=== PATIENT | male | born 1945 | race African-American/Black ===

== ENCOUNTER 2018-09-14 11:04 | Inpatient (IN) | payer MEDICARE, MEDICAID ==
[~2018-09-14] VITALS: Ht 185.4 cm; Wt 98.9 kg
[2018-09-14] MEDS ORDERED: ALBUTEROL (0.083%) 2.5MG/3ML NEB HHN STA (12:16)
[2018-09-14] MEDS ORDERED: IPRATROPIUM BROMIDE (0.02%) 0.5MG/2.5ML NEB HHN STA (12:16)
[2018-09-14 12:26] LABS: HEMATOCRIT. 36.5 % (42.0-52.0); HEMOGLOBIN. 11.7 g/dL (14.0-18.0); MEAN CORPUSCULAR HEMOGLOBIN 29.1 pg (28.0-32.0); MEAN CORPUSCULAR VOLUME 91.1 fL (80.0-94.0); MEAN PLATELET VOLUME 10.2 fl (7.4-10.4); PLATELET 214 x1000/uL (130-400); RED BLOOD CELL COUNT 4.01 mill/uL (4.7-6.1); RED CELL DISTRIBUTION WIDTH 14.3 % (11.6-14.6)
[2018-09-14] MEDS ORDERED: FUROSEMIDE 20MG/2ML VIAL IVP ONE (12:30)
[2018-09-14 12:32] LABS: CHLORIDE 103 mEq/L (98-107)
[2018-09-14 12:35] LABS: PARTIAL THROMBOPLASTIN TIME 26.1 sec (23.4-31.0); PROTHROMBIN TIME 10.1 sec (9.1-11.1)
[2018-09-14 13:04] LABS: PLATELET ESTIMATE NORMAL
[2018-09-14] MEDS ORDERED: IPRATROPIUM/ALBUTEROL 0.5-3(2.5)MG/3ML NEB INH PRN (13:15)
[2018-09-14] MEDS ORDERED: LEVOFLOXACIN 500MG PREMIX 100 ML IV ONE (13:15)
[2018-09-14] MEDS ORDERED: ACETAMINOPHEN 325MG TABLET PO PRN (13:15)
[2018-09-14] MEDS ORDERED: LORAZEPAM 2MG/ML CPJ IV PRN (13:15)
[2018-09-14] MEDS ORDERED: HYDROCODONE/ACETAMINOPHEN 5/325MG TABLET PO PRN (13:15)
[2018-09-14] MEDS ORDERED: NA PHOS,M-B/NA PHOS,DI-BA ENEMA 118ML PR PRN (13:15)
[2018-09-14] MEDS ORDERED: MORPHINE SULFATE 4 MG/ML CPJ (NOT FOR IM USE) IV PRN (13:15)
[2018-09-14] MEDS ORDERED: DOCUSATE SODIUM 100MG CAPSULE PO PRN (13:15)
[2018-09-14] MEDS ORDERED: DIPHENHYDRAMINE 50MG/ML VIAL IV PRN (13:15)
[2018-09-14] MEDS ORDERED: MAGNESIUM/ALUMINUM HYDROXIDE/SIMETHICONE 30ML UDC PO PRN (13:15)
[2018-09-14 15:04] LABS: CLARITY URINE CLEAR (CLEAR); COLOR URINE DARK YELLOW (YELLOW); KETONES URINE NEGATIVE (NEGATIVE); LEUKOCYTE ESTERASE URINE NEGATIVE (NEGATIVE); NITRITE URINE NEGATIVE (NEGATIVE); OCCULT BLOOD URINE NEGATIVE (NEGATIVE); PROTEIN URINE 3+ (NEGATIVE)
[2018-09-14 15:16] LABS: *AMPHETAMINES SCREEN URINE NEGATIVE (NEGATIVE); *BARBITURATES SCREEN URINE NEGATIVE (NEGATIVE); *BENZODIAZEPINES SCREEN URINE NEGATIVE (NEGATIVE); CANNABINOID URINE SCREEN PRESUMTIVE POSITIVE (NEGATIVE); PHENCYCLIDINE URINE SCREEN NEGATIVE (NEGATIVE)
[2018-09-14 15:17] LABS: *COCAINE SCREEN URINE NEGATIVE (NEGATIVE); METHADONE URINE SCREEN NEGATIVE (NEGATIVE); OPIATES URINE SCREEN NEGATIVE (NEGATIVE)
[2018-09-14] MEDS: CLONIDINE 0.1MG TABLET PO PRN (17:07)
[2018-09-14] MEDS ORDERED: AMLODIPINE 5MG TABLET PO NR (17:15)
[2018-09-14 18:22] VITALS: BP 186/82
[2018-09-14] MEDS ORDERED: GABA-290 PO (18:27)
[2018-09-14] MEDS ORDERED: INSU100I33 SQ ×2 (18:27)
[2018-09-14] MEDS ORDERED: LOSA100T14 PO (18:30)
[2018-09-14] MEDS ORDERED: FURO-151 PO (18:30)
[2018-09-14] MEDS ORDERED: HYDR-4001 PO (18:30)
[2018-09-14] MEDS ORDERED: HYDR100T26 PO (18:30)
[2018-09-14] MEDS ORDERED: DEXTROSE 50% WATER 50ML SYRINGE IV PRN (19:15)
[2018-09-14 20:00] VITALS: BP 148/73
[2018-09-14] MEDS: IPRATROPIUM/ALBUTEROL 0.5-3(2.5)MG/3ML NEB HHN SCH (20:44)
[2018-09-14] MEDS: ENOXAPARIN 40MG/0.4ML SYR SUBCUT SCH (20:53)
[2018-09-14] MEDS: INSULIN LISPRO 100 UNITS/ML SUBCUT SCH (20:53)
[2018-09-14] MEDS: GUAIFENESIN 600MG ER TABLET PO SCH (20:53)
[2018-09-14] MEDS: BLOOD SUGAR DIAGNOSTIC STRIP TEST SCH (20:54)
[2018-09-14] MEDS: METHYLPREDNISOLONE SOD SUCC 125 MG/2 ML VIAL IV SCH (20:54)
[2018-09-15] VITALS (8 sets, daily range): BP systolic 136–189; BP diastolic 61–94
[2018-09-15] MEDS: IPRATROPIUM/ALBUTEROL 0.5-3(2.5)MG/3ML NEB HHN SCH ×6 (00:52→21:14)
[2018-09-15] MEDS: METHYLPREDNISOLONE SOD SUCC 125 MG/2 ML VIAL IV SCH ×2 (05:59→14:45)
[2018-09-15] MEDS: BLOOD SUGAR DIAGNOSTIC STRIP TEST SCH ×4 (06:04→21:00)
[2018-09-15 08:02] LABS: BASOPHILS % 0.4 % (0.0-2.0); HEMATOCRIT. 33.8 % (42.0-52.0); HEMOGLOBIN. 10.8 g/dL (14.0-18.0); LYMPHOCYTES % 17.3 % (20.0-50.0); MEAN CORPUSCULAR VOLUME 90.8 fL (80.0-94.0); MEAN PLATELET VOLUME 10.7 fl (7.4-10.4); MONOCYTES % 7.2 % (2.0-8.0); NEUTROPHILS % 75.1 % (40.0-76.0); PLATELET 171 x1000/uL (130-400); RED BLOOD CELL COUNT 3.72 mill/uL (4.7-6.1); RED CELL DISTRIBUTION WIDTH 13.7 % (11.6-14.6)
[2018-09-15 08:14] LABS: CHLORIDE 102 mEq/L (98-107)
[2018-09-15 08:32] LABS: LDL CHOLESTEROL 86 mg/dL (5-100)
[2018-09-15 08:33] LABS: HDL CHOLESTEROL 63 mg/dL (40-59)
[2018-09-15 08:34] LABS: T4 FREE 1.62 ng/dL (0.76-1.46)
[2018-09-15] MEDS: INSULIN LISPRO 100 UNITS/ML SUBCUT SCH ×4 (08:50→21:00)
[2018-09-15] MEDS ORDERED: FUROSEMIDE 40MG/4ML VIAL IV SCH (09:00)
[2018-09-15] MEDS: ASPIRIN 81MG EC TABLET PO SCH (09:12)
[2018-09-15] MEDS: AMLODIPINE 5MG TABLET PO SCH ×2 (09:12→21:36)
[2018-09-15] MEDS: GUAIFENESIN 600MG ER TABLET PO SCH ×2 (09:19→21:41)
[2018-09-15] MEDS ORDERED: LOSARTAN POTASSIUM 50 MG TABLET PO SCH (10:30)
[2018-09-15] MEDS ORDERED: SODIUM POLYSTYRENE SULFONATE 15 G/60 ML BOT PO SCH (11:30)
[2018-09-15] MEDS ORDERED: LEVOFLOXACIN 250MG PREMIX 50 ML IV SCH (12:00)
[2018-09-15] MEDS: HYDRALAZINE HCL 50MG TABLET PO SCH ×2 (14:44→21:36)
[2018-09-15 18:50] LABS: CREATINE KINASE 270 IU/L (39-308)
[2018-09-15] MEDS: METHYLPREDNISOLONE SOD SUCC 40 MG/ML VIAL IV SCH ×2 (19:00→21:36)
[2018-09-15] MEDS: GUAIFENESIN 200MG/10ML SUGAR FREE UDC PO PRN (21:36)
[2018-09-15] MEDS: ENOXAPARIN 40MG/0.4ML SYR SUBCUT SCH (21:37)
[2018-09-16] VITALS: BP 147/71
[2018-09-16 04:00] VITALS: BP 155/79
[2018-09-16] MEDS: IPRATROPIUM/ALBUTEROL 0.5-3(2.5)MG/3ML NEB HHN SCH ×6 (04:00→20:45)
[2018-09-16] MEDS: METHYLPREDNISOLONE SOD SUCC 40 MG/ML VIAL IV SCH ×2 (06:02→18:29)
[2018-09-16] MEDS: HYDRALAZINE HCL 50MG TABLET PO SCH (06:03)
[2018-09-16 06:46] LABS: BASOPHILS % 0.3 % (0.0-2.0); HEMATOCRIT. 31.3 % (42.0-52.0); HEMOGLOBIN. 10.1 g/dL (14.0-18.0); LYMPHOCYTES % 11.8 % (20.0-50.0); MEAN CORPUSCULAR HEMOGLOBIN 28.9 pg (28.0-32.0); MEAN CORPUSCULAR VOLUME 89.8 fL (80.0-94.0); MEAN PLATELET VOLUME 10.4 fl (7.4-10.4); NEUTROPHILS % 81.9 % (40.0-76.0); PLATELET 182 x1000/uL (130-400); RED BLOOD CELL COUNT 3.48 mill/uL (4.7-6.1)
[2018-09-16] MEDS: BLOOD SUGAR DIAGNOSTIC STRIP TEST SCH ×4 (06:56→20:58)
[2018-09-16 08:00] VITALS: BP 172/68
[2018-09-16 08:28] LABS: PHOSPHORUS 4.6 mg/dL (2.5-4.9)
[2018-09-16 08:37] LABS: BG BASE EXCESS 3.3 mmol/L (-2.0-2.0); BG CARBOXYHEMOGLOBIN 0.7 % (0.5-1.5); BG DEOXYHEMOGLOBIN 11.2 % (0.0-5.0); BG HCO3 ACT 27.5 mmol/L (22.0-26.0); BG OXYGEN SATURATION 88.7 % (92.0-98.5); BG OXYHEMOGLOBIN 88.1 % (94.0-97.0); BG PCO2 40.6 mmHg (35.0-45.0); BG PH 7.449 (7.350-7.450); BG SAMPLE SITE RIGHT RADIAL; BG TOTAL HEMOGLOBIN 10.9 g/dL (12.0-18.0); BG VENT MODE ROOM AIR
[2018-09-16] MEDS: GUAIFENESIN 600MG ER TABLET PO SCH ×2 (09:14→20:57)
[2018-09-16] MEDS: ASPIRIN 81MG EC TABLET PO SCH (09:14)
[2018-09-16] MEDS: AMLODIPINE 5MG TABLET PO SCH ×2 (09:14→20:57)
[2018-09-16] MEDS: CLONIDINE 0.1MG TABLET PO PRN (09:15)
[2018-09-16] MEDS: INSULIN LISPRO 100 UNITS/ML SUBCUT SCH ×4 (09:17→20:56)
[2018-09-16 12:00] VITALS: BP 148/63
[2018-09-16] MEDS: HYDRALAZINE HCL 100MG TABLET PO SCH ×2 (13:53→21:01)
[2018-09-16] MEDS: LEVOFLOXACIN 250MG PREMIX 50 ML IV SCH (14:00)
[2018-09-16] MEDS ORDERED: LIDOCAINE HCL/PF 1% 2ML VIAL ONE (14:37)
[2018-09-16] MEDS: CLONIDINE 0.2MG TABLET PO SCH ×2 (15:32→21:01)
[2018-09-16 16:00] VITALS: BP 154/64
[2018-09-16 20:00] VITALS: BP 139/61
[2018-09-16] MEDS: ZOLPIDEM TARTRATE 5MG TABLET PO PRN (20:57)
[2018-09-16] MEDS: ENOXAPARIN 40MG/0.4ML SYR SUBCUT SCH (20:58)
[2018-09-17 00:27] VITALS: BP 121/56
[2018-09-17] MEDS: IPRATROPIUM/ALBUTEROL 0.5-3(2.5)MG/3ML NEB HHN SCH ×6 (01:00→20:54)
[2018-09-17 04:00] VITALS: BP 145/66
[2018-09-17] MEDS: CLONIDINE 0.2MG TABLET PO SCH ×3 (06:23→21:05)
[2018-09-17] MEDS: HYDRALAZINE HCL 100MG TABLET PO SCH ×3 (06:24→21:06)
[2018-09-17] MEDS: BLOOD SUGAR DIAGNOSTIC STRIP TEST SCH ×4 (06:24→21:06)
[2018-09-17] MEDS: METHYLPREDNISOLONE SOD SUCC 40 MG/ML VIAL IV SCH (06:43)
[2018-09-17 06:56] LABS: BASOPHILS % 0.2 % (0.0-2.0); HEMATOCRIT. 30.9 % (42.0-52.0); HEMOGLOBIN. 10.1 g/dL (14.0-18.0); MEAN CORPUSCULAR HEMOGLOBIN 29.3 pg (28.0-32.0); MEAN CORPUSCULAR VOLUME 89.9 fL (80.0-94.0); MEAN PLATELET VOLUME 9.9 fl (7.4-10.4); MONOCYTES % 6.3 % (2.0-8.0); NEUTROPHILS % 84.5 % (40.0-76.0); PLATELET 170 x1000/uL (130-400); RED BLOOD CELL COUNT 3.44 mill/uL (4.7-6.1); RED CELL DISTRIBUTION WIDTH 13.7 % (11.6-14.6)
[2018-09-17 08:00] VITALS: BP 146/64
[2018-09-17] MEDS: ASPIRIN 81MG EC TABLET PO SCH (08:45)
[2018-09-17] MEDS: AMLODIPINE 5MG TABLET PO SCH ×2 (08:45→21:06)
[2018-09-17] MEDS: INSULIN LISPRO 100 UNITS/ML SUBCUT SCH ×4 (08:48→21:11)
[2018-09-17] MEDS: GUAIFENESIN 600MG ER TABLET PO SCH ×2 (09:54→21:05)
[2018-09-17 12:00] VITALS: BP 133/64
[2018-09-17] MEDS: LEVOFLOXACIN 250MG PREMIX 50 ML IV SCH (15:51)
[2018-09-17 16:00] VITALS: BP 140/61
[2018-09-17] MEDS: PREDNISONE 20MG TABLET PO SCH (17:03)
[2018-09-17] MEDS ORDERED: METHYLPREDNISOLONE SOD SUCC 125 MG/2 ML VIAL IV SCH (18:00)
[2018-09-17 20:00] VITALS: BP 120/66
[2018-09-17] MEDS: ZOLPIDEM TARTRATE 5MG TABLET PO PRN (21:06)
[2018-09-17] MEDS: ENOXAPARIN 40MG/0.4ML SYR SUBCUT SCH (21:08)
[2018-09-18] VITALS (7 sets, daily range): BP systolic 126–150; BP diastolic 61–67
[2018-09-18] MEDS: IPRATROPIUM/ALBUTEROL 0.5-3(2.5)MG/3ML NEB HHN SCH ×6 (00:55→15:57)
[2018-09-18] MEDS: CLONIDINE 0.2MG TABLET PO SCH ×3 (06:18→21:49)
[2018-09-18] MEDS: HYDRALAZINE HCL 100MG TABLET PO SCH ×3 (06:19→21:50)
[2018-09-18] MEDS: BLOOD SUGAR DIAGNOSTIC STRIP TEST SCH ×4 (06:22→21:00)
[2018-09-18] MEDS: GUAIFENESIN 200MG/10ML SUGAR FREE UDC PO PRN (08:18)
[2018-09-18] MEDS: PREDNISONE 20MG TABLET PO SCH ×2 (08:18→16:23)
[2018-09-18] MEDS: AMLODIPINE 5MG TABLET PO SCH ×2 (08:18→21:50)
[2018-09-18] MEDS: ASPIRIN 81MG EC TABLET PO SCH (08:18)
[2018-09-18] MEDS: INSULIN LISPRO 100 UNITS/ML SUBCUT SCH ×4 (08:40→21:55)
[2018-09-18] MEDS: LEVOFLOXACIN 500MG TABLET PO SCH (10:58)
[2018-09-18] MEDS: GUAIFENESIN 600MG ER TABLET PO SCH ×2 (18:23→21:00)
[2018-09-18] MEDS: BUDESONIDE 0.5MG/2ML NEB HHN SCH (21:10)
[2018-09-18] MEDS: ZOLPIDEM TARTRATE 5MG TABLET PO PRN (21:48)
[2018-09-18] MEDS: ENOXAPARIN 40MG/0.4ML SYR SUBCUT SCH (21:53)
[2018-09-18] MEDS: INSULIN GLARGINE UD 100 UNITS/ML SYR SUBCUT SCH (21:55)
[2018-09-19] VITALS: BP 132/62
[2018-09-19 04:00] VITALS: BP 149/67
[2018-09-19] MEDS: HYDRALAZINE HCL 100MG TABLET PO SCH ×3 (06:47→22:00)
[2018-09-19] MEDS: BLOOD SUGAR DIAGNOSTIC STRIP TEST SCH ×4 (06:48→21:00)
[2018-09-19] MEDS: CLONIDINE 0.2MG TABLET PO SCH ×3 (06:48→22:00)
[2018-09-19 08:00] VITALS: BP 159/63
[2018-09-19 09:06] LABS: COMPLEMENT C3 147 mg/dL (82-167)
[2018-09-19] MEDS: PREDNISONE 20MG TABLET PO SCH ×2 (09:37→18:32)
[2018-09-19] MEDS: AMLODIPINE 5MG TABLET PO SCH ×2 (09:37→21:00)
[2018-09-19] MEDS: GUAIFENESIN 600MG ER TABLET PO SCH ×2 (09:37→22:03)
[2018-09-19] MEDS: ASPIRIN 81MG EC TABLET PO SCH (09:37)
[2018-09-19] MEDS: INSULIN LISPRO 100 UNITS/ML SUBCUT SCH ×4 (09:38→22:09)
[2018-09-19 12:00] VITALS: BP 159/82
[2018-09-19] MEDS: LEVOFLOXACIN 500MG TABLET PO SCH (12:36)
[2018-09-19] MEDS: BUDESONIDE 0.5MG/2ML NEB HHN SCH ×2 (15:26→20:57)
[2018-09-19] MEDS: IPRATROPIUM/ALBUTEROL 0.5-3(2.5)MG/3ML NEB HHN SCH ×2 (15:26→20:58)
[2018-09-19 16:00] VITALS: BP 111/63
[2018-09-19 20:00] VITALS: BP 105/79
[2018-09-19] MEDS: ENOXAPARIN 40MG/0.4ML SYR SUBCUT SCH (22:03)
[2018-09-19] MEDS: ZOLPIDEM TARTRATE 5MG TABLET PO PRN (22:03)
[2018-09-19] MEDS: INSULIN GLARGINE UD 100 UNITS/ML SYR SUBCUT SCH (22:10)
[2018-09-20] VITALS: BP 134/67
[2018-09-20] MEDS: IPRATROPIUM/ALBUTEROL 0.5-3(2.5)MG/3ML NEB HHN SCH ×4 (00:37→21:14)
[2018-09-20 04:00] VITALS: BP 155/64
[2018-09-20 07:06] LABS: BASOPHILS % 0.1 % (0.0-2.0); HEMATOCRIT. 31.2 % (42.0-52.0); HEMOGLOBIN. 10.2 g/dL (14.0-18.0); LYMPHOCYTES % 7.5 % (20.0-50.0); MEAN CORPUSCULAR VOLUME 89.1 fL (80.0-94.0); MEAN PLATELET VOLUME 9.1 fl (7.4-10.4); NEUTROPHILS % 86.4 % (40.0-76.0); PLATELET 155 x1000/uL (130-400); RED CELL DISTRIBUTION WIDTH 13.6 % (11.6-14.6)
[2018-09-20] MEDS: BLOOD SUGAR DIAGNOSTIC STRIP TEST SCH ×4 (07:20→21:05)
[2018-09-20 08:00] VITALS: BP 154/66
[2018-09-20] MEDS: BUDESONIDE 0.5MG/2ML NEB HHN SCH ×2 (09:20→21:14)
[2018-09-20] MEDS: PREDNISONE 20MG TABLET PO SCH (09:28)
[2018-09-20] MEDS: CLONIDINE 0.2MG TABLET PO SCH ×3 (09:28→21:08)
[2018-09-20] MEDS: HYDRALAZINE HCL 100MG TABLET PO SCH ×3 (09:28→21:05)
[2018-09-20] MEDS: AMLODIPINE 5MG TABLET PO SCH ×2 (09:28→21:04)
[2018-09-20] MEDS: GUAIFENESIN 600MG ER TABLET PO SCH ×2 (09:28→21:04)
[2018-09-20] MEDS: ASPIRIN 81MG EC TABLET PO SCH (09:29)
[2018-09-20 12:00] VITALS: BP 127/57
[2018-09-20 13:06] LABS: ANTI-NUCLEAR ANTIBODIES DIRECT Negative (Negative)
[2018-09-20] MEDS: INSULIN LISPRO 100 UNITS/ML SUBCUT SCH ×3 (13:15→21:00)
[2018-09-20] MEDS: LEVOFLOXACIN 500MG TABLET PO SCH (13:16)
[2018-09-20 16:00] VITALS: BP 134/62
[2018-09-20] MEDS: ONDANSETRON HCL 4MG/2ML INJ IV PRN (18:11)
[2018-09-20 20:00] VITALS: BP 134/64
[2018-09-20] MEDS: ENOXAPARIN 40MG/0.4ML SYR SUBCUT SCH (21:05)
[2018-09-20] MEDS: INSULIN GLARGINE UD 100 UNITS/ML SYR SUBCUT SCH (21:10)
[2018-09-20] MEDS: ZOLPIDEM TARTRATE 5MG TABLET PO PRN (21:14)
[2018-09-21] VITALS: BP 137/65
[2018-09-21 04:00] VITALS: BP 146/61
[2018-09-21] MEDS: HYDRALAZINE HCL 100MG TABLET PO SCH ×2 (05:38→14:00)
[2018-09-21] MEDS: CLONIDINE 0.2MG TABLET PO SCH ×2 (05:38→14:00)
[2018-09-21] MEDS: BLOOD SUGAR DIAGNOSTIC STRIP TEST SCH ×2 (05:38→12:35)
[2018-09-21] MEDS: INSULIN LISPRO 100 UNITS/ML SUBCUT SCH ×2 (07:45→12:37)
[2018-09-21] MEDS: IPRATROPIUM/ALBUTEROL 0.5-3(2.5)MG/3ML NEB HHN SCH ×3 (08:00→15:12)
[2018-09-21 08:05] VITALS: BP 123/57
[2018-09-21] MEDS ORDERED: PREDNISONE 20MG TABLET PO SCH (09:00)
[2018-09-21] MEDS: ONDANSETRON HCL 4MG/2ML INJ IV PRN (09:24)
[2018-09-21] MEDS: ASPIRIN 81MG EC TABLET PO SCH (09:25)
[2018-09-21] MEDS: AMLODIPINE 5MG TABLET PO SCH (09:25)
[2018-09-21] MEDS: GUAIFENESIN 600MG ER TABLET PO SCH (09:25)
[2018-09-21] MEDS: BUDESONIDE 0.5MG/2ML NEB HHN SCH (12:00)
[2018-09-21] MEDS: LEVOFLOXACIN 500MG TABLET PO SCH (12:10)
[2018-09-21 12:30] VITALS: BP 145/64
[2018-09-21 16:12] VITALS: BP 145/64
== END 2018-09-21 17:36 | disposition home health service (06) | DRG 133 ==
LOC: ER 11:04 → EDBEDREQ 12:20 → EDBEDREQTM 12:20 → EDBEDREQSVC 12:20 → 6WST 12:58 → EDBEDREQ 12:59 → EDBEDREQTM 12:59 → ENRESERV 15:43
PROVIDERS: ADMIT Internal Medicine; ATTEND Internal Medicine
DX: J96.21 Acute and chronic respiratory failure with hypoxia (principal); N17.0 Acute kidney failure with tubular necrosis; E44.0 Moderate protein-calorie malnutrition; J18.0 Bronchopneumonia, unspecified organism; E87.2 Acidosis; E11.22 Type 2 diabetes mellitus with diabetic chronic kidney disease; E11.65 Type 2 diabetes mellitus with hyperglycemia; E87.5 Hyperkalemia; D64.9 Anemia, unspecified; D72.821 Monocytosis (symptomatic); J44.0 Chronic obstructive pulmonary disease with (acute) lower respiratory infection; R80.9 Proteinuria, unspecified; J20.9 Acute bronchitis, unspecified; J44.1 Chronic obstructive pulmonary disease with (acute) exacerbation; R74.0 Nonspecific elevation of levels of transaminase and lactic acid dehydrogenase [LDH]; F12.90 Cannabis use, unspecified, uncomplicated; I13.0 Hypertensive heart and chronic kidney disease with heart failure and stage 1 through stage 4 chronic kidney disease, or unspecified chronic kidney disease; N18.9 Chronic kidney disease, unspecified; I25.10 Atherosclerotic heart disease of native coronary artery without angina pectoris; I50.9 Heart failure, unspecified; Z96.642 Presence of left artificial hip joint; Z87.891 Personal history of nicotine dependence; Z91.011 Allergy to milk products; Z68.28 Body mass index [BMI] 28.0-28.9, adult
CPT/HCPCS: 36415; 36600; 71045; 76770; 80048; 80061; 80305; 82375; 82550; 82805; 82962; 83036; 83605; 83735; 83880; 84100; 84145; 84439; 84443; 84484; 86038; 86160; 87804; 93005; 93306; 94618; 94640; 96365; 96366; 96375; 97162; 97530; 99285; C1893; J1200; J1650; J1815; J1940; J1956; J2405; J2920; J2930; J3490; J7050; J7512; J7611; J7620; J7626

== ENCOUNTER 2018-12-09 20:10 | Inpatient (IN) | payer MEDICARE, MEDICAID ==
[~2018-12-09] VITALS: Ht 185.4 cm; Wt 97.5 kg
[~2018-12-09 20:10] MED LIST: FURO-151 PO; GABA-290 PO; HYDR-4001 PO; HYDR100T26 PO; INSU100I33 SQ; LOSA100T32 PO
[2018-12-09] MEDS ORDERED: METHYLPREDNISOLONE SOD SUCC 125 MG/2 ML VIAL IV STA (20:37)
[2018-12-09] MEDS ORDERED: IPRATROPIUM BROMIDE (0.02%) 0.5MG/2.5ML NEB HHN STA (20:37)
[2018-12-09] MEDS ORDERED: ALBUTEROL (0.083%) 2.5MG/3ML NEB HHN STA (20:37)
[2018-12-09] MEDS ORDERED: MAGNESIUM 2 G PREMIX 50 ML IV ONE (20:45)
[2018-12-09 21:10] LABS: BASOPHILS % 1.6 % (0.0-2.0); HEMATOCRIT. 33.5 % (42.0-52.0); HEMOGLOBIN. 10.6 g/dL (14.0-18.0); LYMPHOCYTES % 31.7 % (20.0-50.0); MEAN CORPUSCULAR HEMOGLOBIN 27.7 pg (28.0-32.0); MEAN CORPUSCULAR VOLUME 87.8 fL (80.0-94.0); MEAN PLATELET VOLUME 9.9 fl (7.4-10.4); MONOCYTES % 11.3 % (2.0-8.0); NEUTROPHILS % 53.4 % (40.0-76.0); PLATELET 303 x1000/uL (130-400); RED BLOOD CELL COUNT 3.81 mill/uL (4.7-6.1); RED CELL DISTRIBUTION WIDTH 14.5 % (11.6-14.6)
[2018-12-09 21:14] LABS: CHLORIDE 109 mEq/L (98-107)
[2018-12-09] MEDS ORDERED: IPRATROPIUM/ALBUTEROL 0.5-3(2.5)MG/3ML NEB ONE (21:37)
[2018-12-09] MEDS ORDERED: IPRATROPIUM BROMIDE (0.02%) 0.5MG/2.5ML NEB ONE (21:37)
[2018-12-09] MEDS ORDERED: AZITHROMYCIN 500 MG in DEXT 5% WATER 250 ML IV NR (22:58)
[2018-12-09] MEDS ORDERED: CEFTRIAXONE 1 G PREMIX 50 ML IV NR (23:00)
[2018-12-09 23:39] LABS: BG BASE EXCESS -5.1 mmol/L (-2.0-2.0); BG CARBOXYHEMOGLOBIN 0.8 % (0.5-1.5); BG FRACTION INSPIRED OXYGEN 28; BG HCO3 ACT 22.2 mmol/L (22.0-26.0); BG METHEMOGLOBIN 0.4 % (0.0-1.5); BG OXYHEMOGLOBIN 96.8 % (94.0-97.0); BG PCO2 50.9 mmHg (35.0-45.0); BG PH 7.258 (7.350-7.450); BG SAMPLE SITE RIGHT RADIAL; BG TOTAL HEMOGLOBIN 12.7 g/dL (12.0-18.0); BG VENT MODE NASAL CANNULA
[2018-12-10] VITALS (12 sets, daily range): BP systolic 124–174; BP diastolic 64–93
[2018-12-10] MEDS ORDERED: ACETAMINOPHEN 650MG/20.3ML UDC GT PRN (00:45)
[2018-12-10] MEDS ORDERED: ACETAMINOPHEN 650MG SUPP PR PRN (00:45)
[2018-12-10] MEDS ORDERED: GUAIFENESIN 200MG/10ML SUGAR FREE UDC PO PRN (00:45)
[2018-12-10] MEDS ORDERED: IPRATROPIUM/ALBUTEROL 0.5-3(2.5)MG/3ML NEB INH PRN (00:45)
[2018-12-10] MEDS ORDERED: IPRATROPIUM/ALBUTEROL 0.5-3(2.5)MG/3ML NEB INH SCH (00:45)
[2018-12-10] MEDS ORDERED: DEXTROSE 50% WATER 50ML SYRINGE IV PRN (00:45)
[2018-12-10] MEDS ORDERED: MAGNESIUM/ALUMINUM HYDROXIDE/SIMETHICONE 30ML UDC PO PRN (00:45)
[2018-12-10] MEDS ORDERED: DIPHENHYDRAMINE 50MG/ML VIAL IV PRN (00:45)
[2018-12-10] MEDS ORDERED: HYDROCODONE/ACETAMINOPHEN 5/325MG TABLET PO PRN (00:45)
[2018-12-10] MEDS ORDERED: ONDANSETRON HCL 4MG/2ML INJ IV PRN (00:45)
[2018-12-10] MEDS ORDERED: HYDRALAZINE 20MG/ML VIAL IV PRN (00:45)
[2018-12-10] MEDS ORDERED: ACETAMINOPHEN 325MG TABLET PO PRN (00:45)
[2018-12-10] MEDS ORDERED: NA PHOS,M-B/NA PHOS,DI-BA ENEMA 118ML PR PRN (00:45)
[2018-12-10] MEDS ORDERED: SITA50TA3 MT (03:16)
[2018-12-10] MEDS ORDERED: ESOM40CA MT (03:16)
[2018-12-10] MEDS ORDERED: ERGO400C MT (03:17)
[2018-12-10] MEDS: SODIUM CHLORIDE 0.9% INJ 3ML FLUSH IVF SCH ×3 (06:00→21:19)
[2018-12-10] MEDS ORDERED: METHYLPREDNISOLONE SOD SUCC 125 MG/2 ML VIAL IV SCH (06:00)
[2018-12-10] MEDS: INSULIN LISPRO 100 UNITS/ML SUBCUT SCH ×4 (07:03→21:20)
[2018-12-10] MEDS: BLOOD SUGAR DIAGNOSTIC STRIP TEST SCH ×4 (07:04→20:47)
[2018-12-10] MEDS ORDERED: LEVOFLOXACIN 500MG PREMIX 100 ML IV NR (08:00)
[2018-12-10] MEDS: ENOXAPARIN 40MG/0.4ML SYR SUBCUT SCH (09:01)
[2018-12-10] MEDS: FAMOTIDINE 20MG/2ML VIAL IV SCH (09:01)
[2018-12-10] MEDS: IPRATROPIUM/ALBUTEROL 0.5-3(2.5)MG/3ML NEB INH SCH ×3 (09:05→20:13)
[2018-12-10 09:13] LABS: BG BASE EXCESS -4.5 mmol/L (-2.0-2.0); BG CARBOXYHEMOGLOBIN 0.3 % (0.5-1.5); BG DEOXYHEMOGLOBIN 2.9 % (0.0-5.0); BG FRACTION INSPIRED OXYGEN 36; BG HCO3 ACT 21.7 mmol/L (22.0-26.0); BG METHEMOGLOBIN 0.2 % (0.0-1.5); BG OXYGEN SATURATION 97.1 % (92.0-98.5); BG OXYHEMOGLOBIN 96.6 % (94.0-97.0); BG PH 7.301 (7.350-7.450); BG PO2 101.1 mmHg (75.0-100.0); BG SAMPLE SITE RIGHT RADIAL; BG TOTAL HEMOGLOBIN 10.1 g/dL (12.0-18.0); BG VENT MODE NASAL CANNULA
[2018-12-10 09:35] LABS: PROTHROMBIN TIME 10.1 sec (9.6-11.0)
[2018-12-10 09:42] LABS: HEMATOCRIT. 31.1 % (42.0-52.0); HEMOGLOBIN. 9.8 g/dL (14.0-18.0); MEAN CORPUSCULAR HEMOGLOBIN 27.7 pg (28.0-32.0); MEAN CORPUSCULAR VOLUME 87.7 fL (80.0-94.0); MEAN PLATELET VOLUME 10.4 fl (7.4-10.4); PLATELET 193 x1000/uL (130-400); RED BLOOD CELL COUNT 3.55 mill/uL (4.7-6.1); RED CELL DISTRIBUTION WIDTH 14.4 % (11.6-14.6)
[2018-12-10 09:49] LABS: CHLORIDE 106 mEq/L (98-107)
[2018-12-10 09:58] LABS: CREATINE KINASE 88 IU/L (39-308)
[2018-12-10] MEDS ORDERED: INSULIN GLARGINE UD 100 UNITS/ML SYR SUBCUT SCH (10:00)
[2018-12-10 10:02] LABS: CREATINE KINASE MB FRACTION 1.8 ng/mL (0.5-3.6)
[2018-12-10] MEDS: CLONIDINE 0.1MG TABLET PO PRN (10:11)
[2018-12-10] MEDS ORDERED: [UNRECOGNIZED DRUG - OTHER] SQ SCH ×2 (10:15→21:00)
[2018-12-10] MEDS ORDERED: MEDICATION NOT ON FORMULARY EA (Esomeprazole Mag Trihydrate (Nexium) 1 CAP) MT SCH (10:15)
[2018-12-10] MEDS ORDERED: INSULIN NPH HUM SQ SCH ×2 (10:15→21:00)
[2018-12-10] MEDS ORDERED: MEDICATION NOT ON FORMULARY EA (Gabapentin 1 TAB) PO SCH (10:15)
[2018-12-10] MEDS ORDERED: ERGOCALCIFEROL MT SCH (10:15)
[2018-12-10] MEDS ORDERED: REG INSULIN SQ SCH ×2 (10:15→21:00)
[2018-12-10] MEDS ORDERED: MEDICATION NOT ON FORMULARY EA (Furosemide (Lasix) 1 TAB) PO SCH (10:15)
[2018-12-10] MEDS ORDERED: MEDICATION NOT ON FORMULARY EA (Losartan Potassium 1 TAB) PO SCH (10:15)
[2018-12-10] MEDS ORDERED: MEDICATION NOT ON FORMULARY EA (Sitagliptin Phosphate (Januvia) 1 TAB) MT SCH (10:15)
[2018-12-10] MEDS ORDERED: MEDICATION NOT ON FORMULARY EA (Hydralazine Hcl 1 TAB) PO SCH (10:15)
[2018-12-10] MEDS: LOSARTAN POTASSIUM 100 MG TABLET PO SCH (10:56)
[2018-12-10] MEDS: CHOLECALCIFEROL (VIT D3) 400 UNIT TABLET PO SCH (10:56)
[2018-12-10] MEDS: PANTOPRAZOLE 40MG DR TABLET PO SCH (10:56)
[2018-12-10] MEDS: FUROSEMIDE 40MG TABLET PO SCH (10:56)
[2018-12-10] MEDS: DOCUSATE SODIUM 100MG CAPSULE PO PRN (10:56)
[2018-12-10] MEDS: LINAGLIPTIN 5MG TABLET PO SCH (10:56)
[2018-12-10] MEDS: METHYLPREDNISOLONE SOD SUCC 40 MG/ML VIAL IV SCH ×2 (12:29→17:42)
[2018-12-10] MEDS ORDERED: GABAPENTIN 300MG CAPSULE PO SCH (13:00)
[2018-12-10] MEDS: HYDRALAZINE HCL 100MG TABLET PO SCH ×2 (13:33→21:19)
[2018-12-10 14:00] LABS: PLATELET ESTIMATE NORMAL
[2018-12-10 15:47] LABS: CLARITY URINE CLEAR (CLEAR); COLOR URINE YELLOW (YELLOW); KETONES URINE NEGATIVE (NEGATIVE); LEUKOCYTE ESTERASE URINE NEGATIVE (NEGATIVE); NITRITE URINE NEGATIVE (NEGATIVE); OCCULT BLOOD URINE NEGATIVE (NEGATIVE); PH URINE 5.5 (4.5-8.0); PROTEIN URINE TRACE (NEGATIVE); SPECIFIC GRAVITY URINE 1.018 (1.005-1.030)
[2018-12-10 16:51] LABS: CREATINE KINASE 96 IU/L (39-308); CREATINE KINASE MB FRACTION 2.5 ng/mL (0.5-3.6)
[2018-12-10] MEDS: GABAPENTIN 400MG CAPSULE PO SCH (21:19)
[2018-12-11] VITALS (13 sets, daily range): BP systolic 132–175; BP diastolic 70–102
[2018-12-11] MEDS: METHYLPREDNISOLONE SOD SUCC 40 MG/ML VIAL IV SCH ×3 (00:35→12:19)
[2018-12-11] MEDS: IPRATROPIUM/ALBUTEROL 0.5-3(2.5)MG/3ML NEB INH SCH ×4 (02:05→21:18)
[2018-12-11] MEDS: HYDRALAZINE HCL 100MG TABLET PO SCH ×3 (06:35→22:40)
[2018-12-11] MEDS: GABAPENTIN 400MG CAPSULE PO SCH ×3 (06:35→22:40)
[2018-12-11] MEDS: PANTOPRAZOLE 40MG DR TABLET PO SCH (06:35)
[2018-12-11] MEDS: SODIUM CHLORIDE 0.9% INJ 3ML FLUSH IVF SCH ×2 (06:35→12:19)
[2018-12-11] MEDS: BLOOD SUGAR DIAGNOSTIC STRIP TEST SCH ×4 (06:36→21:00)
[2018-12-11 06:42] LABS: CHLORIDE 105 mEq/L (98-107); HEMATOCRIT. 29.1 % (42.0-52.0); HEMOGLOBIN. 9.4 g/dL (14.0-18.0); MEAN CORPUSCULAR HEMOGLOBIN 28.2 pg (28.0-32.0); MEAN CORPUSCULAR VOLUME 87.1 fL (80.0-94.0); MEAN PLATELET VOLUME 10.5 fl (7.4-10.4); PLATELET 191 x1000/uL (130-400); RED BLOOD CELL COUNT 3.34 mill/uL (4.7-6.1); RED CELL DISTRIBUTION WIDTH 14.3 % (11.6-14.6)
[2018-12-11 06:48] LABS: LDL CHOLESTEROL 85 mg/dL (5-100)
[2018-12-11 06:51] LABS: HDL CHOLESTEROL 62 mg/dL (40-59)
[2018-12-11] MEDS: INSULIN LISPRO 100 UNITS/ML SUBCUT SCH ×4 (07:37→23:08)
[2018-12-11] MEDS: LINAGLIPTIN 5MG TABLET PO SCH (07:45)
[2018-12-11] MEDS: CHOLECALCIFEROL (VIT D3) 400 UNIT TABLET PO SCH (07:45)
[2018-12-11] MEDS: DOCUSATE SODIUM 100MG CAPSULE PO PRN (07:45)
[2018-12-11] MEDS: LOSARTAN POTASSIUM 100 MG TABLET PO SCH (07:45)
[2018-12-11] MEDS: FUROSEMIDE 40MG TABLET PO SCH (07:45)
[2018-12-11] MEDS: ENOXAPARIN 40MG/0.4ML SYR SUBCUT SCH (07:46)
[2018-12-11] MEDS: LEVOFLOXACIN 250MG PREMIX 50 ML IV SCH (07:48)
[2018-12-11] MEDS: FAMOTIDINE 20MG/2ML VIAL IV SCH (07:52)
[2018-12-11 07:59] LABS: PLATELET ESTIMATE NORMAL
[2018-12-11] MEDS: INSULIN GLARGINE UD 100 UNITS/ML SYR SUBCUT SCH (10:20)
[2018-12-11] MEDS: CLONIDINE 0.1MG TABLET PO PRN (17:06)
[2018-12-11] MEDS ORDERED: LACTULOSE 20G/30ML UDC PO NR (17:30)
[2018-12-11] MEDS ORDERED: SODIUM POLYSTYRENE SULFONATE 15 G/60 ML BOT PO NR (18:30)
[2018-12-12] VITALS (9 sets, daily range): BP systolic 125–163; BP diastolic 65–95
[2018-12-12] MEDS: SODIUM CHLORIDE 0.9% INJ 3ML FLUSH IVF SCH ×3 (06:22→14:00)
[2018-12-12] MEDS: GABAPENTIN 400MG CAPSULE PO SCH ×2 (06:38→12:52)
[2018-12-12] MEDS: HYDRALAZINE HCL 100MG TABLET PO SCH ×2 (06:38→12:52)
[2018-12-12] MEDS: INSULIN LISPRO 100 UNITS/ML SUBCUT SCH ×2 (07:20→12:58)
[2018-12-12] MEDS: BLOOD SUGAR DIAGNOSTIC STRIP TEST SCH ×2 (07:26→12:26)
[2018-12-12] MEDS: LINAGLIPTIN 5MG TABLET PO SCH (08:15)
[2018-12-12] MEDS: LEVOFLOXACIN 250MG PREMIX 50 ML IV SCH (08:15)
[2018-12-12] MEDS: CHOLECALCIFEROL (VIT D3) 400 UNIT TABLET PO SCH (08:15)
[2018-12-12] MEDS: FAMOTIDINE 20MG/2ML VIAL IV SCH (08:15)
[2018-12-12] MEDS: ENOXAPARIN 40MG/0.4ML SYR SUBCUT SCH (08:16)
[2018-12-12] MEDS: IPRATROPIUM/ALBUTEROL 0.5-3(2.5)MG/3ML NEB INH SCH ×3 (08:49→14:34)
[2018-12-12] MEDS ORDERED: METHYLPREDNISOLONE SOD SUCC 40 MG/ML VIAL IV SCH (09:00)
[2018-12-12] MEDS: INSULIN GLARGINE UD 100 UNITS/ML SYR SUBCUT SCH (09:58)
[2018-12-12 10:50] LABS: BASOPHILS % 0.2 % (0.0-2.0); HEMATOCRIT. 32.6 % (42.0-52.0); HEMOGLOBIN. 10.5 g/dL (14.0-18.0); LYMPHOCYTES % 8.4 % (20.0-50.0); MEAN CORPUSCULAR HEMOGLOBIN 27.9 pg (28.0-32.0); MEAN CORPUSCULAR VOLUME 86.6 fL (80.0-94.0); MONOCYTES % 7.4 % (2.0-8.0); PLATELET 195 x1000/uL (130-400); RED BLOOD CELL COUNT 3.76 mill/uL (4.7-6.1); RED CELL DISTRIBUTION WIDTH 14.5 % (11.6-14.6)
[2018-12-12] MEDS ORDERED: PREDNISONE 20MG TABLET PO SCH (16:00)
[2018-12-13] MEDS ORDERED: LEVOFLOXACIN 250MG TABLET PO SCH (11:00)
== END 2018-12-12 18:20 | disposition home health service (06) | DRG 140 ==
LOC: ER 20:10 → ENRESERV 12-10 01:36 → 3WST 12-10 02:36
PROVIDERS: ADMIT Family Medicine; ATTEND Family Medicine
PROC: 5A09357 Assistance with Respiratory Ventilation, Less than 24 Consecutive Hours, Continuous Positive Airway Pressure (ICD-10-PCS; principal; 2018-12-10)
DX: J44.1 Chronic obstructive pulmonary disease with (acute) exacerbation (principal); J96.02 Acute respiratory failure with hypercapnia; R65.11 Systemic inflammatory response syndrome (SIRS) of non-infectious origin with acute organ dysfunction; E11.21 Type 2 diabetes mellitus with diabetic nephropathy; E11.65 Type 2 diabetes mellitus with hyperglycemia; E11.22 Type 2 diabetes mellitus with diabetic chronic kidney disease; J06.9 Acute upper respiratory infection, unspecified; E66.9 Obesity, unspecified; D63.8 Anemia in other chronic diseases classified elsewhere; E44.1 Mild protein-calorie malnutrition; F12.90 Cannabis use, unspecified, uncomplicated; I12.9 Hypertensive chronic kidney disease with stage 1 through stage 4 chronic kidney disease, or unspecified chronic kidney disease; Z96.642 Presence of left artificial hip joint; N18.9 Chronic kidney disease, unspecified; T38.0X5A Adverse effect of glucocorticoids and synthetic analogues, initial encounter; Y92.89 Other specified places as the place of occurrence of the external cause; Z68.29 Body mass index [BMI] 29.0-29.9, adult; Z87.891 Personal history of nicotine dependence; Z99.81 Dependence on supplemental oxygen; Z91.011 Allergy to milk products; Z79.1 Long term (current) use of non-steroidal anti-inflammatories (NSAID); Z79.4 Long term (current) use of insulin; Z79.899 Other long term (current) drug therapy
CPT/HCPCS: 36415; 36600; 71045; 80048; 80061; 82375; 82550; 82553; 82805; 82962; 83036; 83880; 84132; 84484; 93005; 94640; 94644; 94660; 96365; 96366; 96367; 96375; 97162; 99291; J0360; J0456; J0696; J1650; J1815; J1956; J2920; J2930; J3475; J3490; J7040; J7060; J7611; J7620

== ENCOUNTER 2019-07-22 16:50 | Inpatient (IN) | payer MEDICARE, MEDICAID ==
[~2019-07-22] VITALS: Ht 185.4 cm; Wt 103.4 kg
[~2019-07-22 16:50] MED LIST changes: +ERGO400C MT; +ESOM40CA MT; +INSULIN GLARGINE UD 100 UNITS/ML SYR SUBCUT SCH; -LOSA100T32 PO; +SITA50TA3 MT
[2019-07-22] MEDS ORDERED: IPRATROPIUM BROMIDE (0.02%) 0.5MG/2.5ML NEB HHN STA (17:17)
[2019-07-22] MEDS ORDERED: ALBUTEROL (0.083%) 2.5MG/3ML NEB HHN STA (17:17)
[2019-07-22] MEDS ORDERED: METHYLPREDNISOLONE SOD SUCC 125 MG/2 ML VIAL IV STA (17:17)
[2019-07-22] MEDS ORDERED: INSULIN REGULAR (HUMULIN R) UD 100 UNITS/ML SYR SUBCUT ONE (17:30)
[2019-07-22 17:40] LABS: BASOPHILS % 0.8 % (0.0-2.0); EOSINOPHILS % 0.6 % (0.0-5.0); HEMOGLOBIN. 8.5 g/dL (14.0-18.0); LYMPHOCYTES % 14.3 % (20.0-50.0); MEAN CORPUSCULAR HEMOGLOBIN 26.9 pg (28.0-32.0); MEAN CORPUSCULAR VOLUME 85.2 fL (80.0-94.0); MEAN PLATELET VOLUME 9.3 fl (7.4-10.4); MONOCYTES % 13.9 % (2.0-8.0); NEUTROPHILS % 70.4 % (40.0-76.0); PLATELET 379 x1000/uL (130-400); RED BLOOD CELL COUNT 3.17 mill/uL (4.7-6.1); RED CELL DISTRIBUTION WIDTH 14.9 % (11.6-14.6)
[2019-07-22 17:43] LABS: CHLORIDE 104 mEq/L (98-107)
[2019-07-22 17:49] LABS: PARTIAL THROMBOPLASTIN TIME 34.7 sec (23.4-31.0); PROTHROMBIN TIME 10.5 sec (9.6-11.0)
[2019-07-22] MEDS ORDERED: INSULIN REGULAR (HUMULIN R) 300UNITS/3ML SUBCUT SCH (18:07)
[2019-07-22] MEDS: LEVOFLOXACIN 750MG PREMIX 150 ML IV ONE ×2 (18:45→19:14)
[2019-07-22] MEDS ORDERED: SODIUM CHLORIDE 0.9% 1000ML BAG (SEPSIS BOLUS) IV ONE (18:45)
[2019-07-22] MEDS ORDERED: LORAZEPAM 0.5MG TABLET PO PRN (21:30)
[2019-07-22] MEDS ORDERED: ACETAMINOPHEN 325MG TABLET PO PRN (21:30)
[2019-07-22] MEDS ORDERED: ONDANSETRON HCL 4MG/2ML INJ IV PRN (21:30)
[2019-07-22] MEDS ORDERED: NON FORMULARY PATIENT HOME MED XX SCH ×2 (21:30)
[2019-07-22] MEDS ORDERED: DOCUSATE SODIUM 100MG CAPSULE PO PRN (21:30)
[2019-07-22] MEDS ORDERED: GUAIFENESIN 200MG/10ML SUGAR FREE UDC PO PRN (21:30)
[2019-07-22] MEDS ORDERED: IPRATROPIUM/ALBUTEROL 0.5-3(2.5)MG/3ML NEB HHN PRN (21:30)
[2019-07-22 22:07] LABS: CLARITY URINE CLEAR (CLEAR); COLOR URINE DARK YELLOW (YELLOW); KETONES URINE NEGATIVE (NEGATIVE); LEUKOCYTE ESTERASE URINE TRACE (NEGATIVE); NITRITE URINE NEGATIVE (NEGATIVE); OCCULT BLOOD URINE NEGATIVE (NEGATIVE); PROTEIN URINE 1+ (NEGATIVE); SPECIFIC GRAVITY URINE 1.019 (1.005-1.030)
[2019-07-22] MEDS ORDERED: INSULIN GLARGINE UD 100 UNITS/ML SYR SUBCUT SCH (23:00)
[2019-07-23] MEDS: CLONIDINE 0.1MG TABLET PO PRN ×2 (00:13→13:13)
[2019-07-23 05:54] LABS: HEMATOCRIT. 26.8 % (42.0-52.0); HEMOGLOBIN. 8.6 g/dL (14.0-18.0); MEAN CORPUSCULAR HEMOGLOBIN 27.9 pg (28.0-32.0); MEAN PLATELET VOLUME 9.8 fl (7.4-10.4); PLATELET 343 x1000/uL (130-400); RED BLOOD CELL COUNT 3.08 mill/uL (4.7-6.1); RED CELL DISTRIBUTION WIDTH 15.3 % (11.6-14.6)
[2019-07-23] MEDS: GABAPENTIN 300MG CAPSULE PO SCH ×4 (06:00→22:43)
[2019-07-23 06:59] LABS: PLATELET ESTIMATE NORMAL
[2019-07-23] MEDS: HYDRALAZINE HCL 100MG TABLET PO SCH ×3 (07:09→22:44)
[2019-07-23] MEDS: OMEPRAZOLE 20MG CAPSULE EXTENDED RELEASE PO SCH ×2 (08:19→18:13)
[2019-07-23] MEDS: FUROSEMIDE 40MG TABLET PO SCH (08:40)
[2019-07-23] MEDS: HYDROCODONE/ACETAMINOPHEN 5/325MG TABLET PO PRN ×2 (08:50→15:01)
[2019-07-23] MEDS ORDERED: INSULIN REGULAR (HUMULIN R) 300UNITS/3ML SUBCUT NR (10:00)
[2019-07-23] MEDS ORDERED: IPRATROPIUM/ALBUTEROL 0.5-3(2.5)MG/3ML NEB HHN PRN (11:30)
[2019-07-23] MEDS ORDERED: METHYLPREDNISOLONE SOD SUCC 40 MG/ML VIAL IV SCH ×2 (11:30→21:00)
[2019-07-23] MEDS: BUDESONIDE 0.5MG/2ML NEB HHN SCH ×2 (11:30→22:20)
[2019-07-23] MEDS: IPRATROPIUM/ALBUTEROL 0.5-3(2.5)MG/3ML NEB HHN SCH (11:34)
[2019-07-23 16:00] VITALS: BP 190/90
[2019-07-23] MEDS ORDERED: LOSA100T32 PO (16:51)
[2019-07-23 16:59] VITALS: BP 192/90
[2019-07-23] MEDS: LABETALOL HCL 100MG TABLET PO SCH (18:13)
[2019-07-23] MEDS ORDERED: DEXTROSE 50% WATER 50ML SYRINGE IV PRN (18:15)
[2019-07-23 20:00] VITALS: BP 163/57
[2019-07-23] MEDS: INSULIN LISPRO 100 UNITS/ML SUBCUT SCH (21:00)
[2019-07-23] MEDS ORDERED: GUAIFENESIN 600MG ER TABLET PO SCH (21:00)
[2019-07-23] MEDS: BLOOD SUGAR DIAGNOSTIC STRIP TEST SCH (21:00)
[2019-07-23] MEDS: METHYLPREDNISOLONE SOD SUCC 40 MG/ML VIAL IV SCH (22:43)
[2019-07-23] MEDS: GUAIFENESIN 600MG ER TABLET PO SCH (22:43)
[2019-07-23] MEDS: INS NPH/REG HM 70-30 100 UNITS/ML 10ML VIAL (HUMULIN 70-30) SUBCUT SCH (22:45)
[2019-07-24] VITALS: BP 145/58
[2019-07-24] MEDS: IPRATROPIUM/ALBUTEROL 0.5-3(2.5)MG/3ML NEB HHN SCH ×6 (00:30→22:20)
[2019-07-24 04:00] VITALS: BP 146/74
[2019-07-24] MEDS: ACETYLCYSTEINE 100MG/ML 10% VIAL 4ML INH SCH (05:00)
[2019-07-24] MEDS: OMEPRAZOLE 20MG CAPSULE EXTENDED RELEASE PO SCH ×2 (06:11→16:57)
[2019-07-24] MEDS: GABAPENTIN 300MG CAPSULE PO SCH ×3 (06:11→22:15)
[2019-07-24] MEDS: BLOOD SUGAR DIAGNOSTIC STRIP TEST SCH ×4 (06:12→20:57)
[2019-07-24] MEDS: HYDRALAZINE HCL 100MG TABLET PO SCH ×3 (06:12→22:15)
[2019-07-24] MEDS: INSULIN LISPRO 100 UNITS/ML SUBCUT SCH ×4 (06:14→21:13)
[2019-07-24] MEDS ORDERED: METHYLPREDNISOLONE SOD SUCC 125 MG/2 ML VIAL IV SCH (06:30)
[2019-07-24 08:00] VITALS: BP 152/57
[2019-07-24] MEDS: METHYLPREDNISOLONE SOD SUCC 40 MG/ML VIAL IV SCH (08:33)
[2019-07-24] MEDS: INS NPH/REG HM 70-30 100 UNITS/ML 10ML VIAL (HUMULIN 70-30) SUBCUT SCH ×2 (08:34→21:19)
[2019-07-24] MEDS: LABETALOL HCL 100MG TABLET PO SCH ×2 (08:34→21:12)
[2019-07-24] MEDS: GUAIFENESIN 600MG ER TABLET PO SCH ×2 (08:34→21:12)
[2019-07-24] MEDS: BUDESONIDE 0.5MG/2ML NEB HHN SCH (09:00)
[2019-07-24 12:00] VITALS: BP 131/56
[2019-07-24] MEDS: FUROSEMIDE 40MG TABLET PO SCH (12:49)
[2019-07-24 16:00] VITALS: BP 115/58
[2019-07-24] MEDS ORDERED: SODIUM CHLORIDE 10% FOR INH 15ML VIAL NEB INH NR (16:30)
[2019-07-24] MEDS: AZITHROMYCIN 500 MG TABLET PO SCH (16:56)
[2019-07-24] MEDS: CEFTRIAXONE 1 G PREMIX 50 ML IV SCH (16:57)
[2019-07-24] MEDS ORDERED: SODIUM CHLORIDE 3% FOR INH 4ML UD NEB INH SCH (17:00)
[2019-07-24 20:00] VITALS: BP 150/64
[2019-07-25] VITALS: BP 134/52
[2019-07-25] MEDS: IPRATROPIUM/ALBUTEROL 0.5-3(2.5)MG/3ML NEB HHN SCH ×5 (01:20→21:00)
[2019-07-25 04:00] VITALS: BP 147/64
[2019-07-25] MEDS ORDERED: DOCUSATE SODIUM 100MG CAPSULE PO PRN ×2 (05:45)
[2019-07-25] MEDS: HYDRALAZINE HCL 100MG TABLET PO SCH ×3 (05:54→21:00)
[2019-07-25] MEDS: GABAPENTIN 300MG CAPSULE PO SCH ×3 (05:54→21:00)
[2019-07-25] MEDS: OMEPRAZOLE 20MG CAPSULE EXTENDED RELEASE PO SCH (05:54)
[2019-07-25] MEDS: BLOOD SUGAR DIAGNOSTIC STRIP TEST SCH ×4 (06:02→20:59)
[2019-07-25] MEDS: INSULIN LISPRO 100 UNITS/ML SUBCUT SCH ×4 (06:32→20:57)
[2019-07-25 07:56] LABS: CHLORIDE 107 mEq/L (98-107)
[2019-07-25 08:00] VITALS: BP 184/58
[2019-07-25] MEDS: ACETYLCYSTEINE 100MG/ML 10% VIAL 4ML INH SCH ×2 (09:00→15:00)
[2019-07-25 09:27] LABS: BASOPHILS % 0.2 % (0.0-2.0); EOSINOPHILS % 0.6 % (0.0-5.0); HEMATOCRIT. 27.8 % (42.0-52.0); HEMOGLOBIN. 8.8 g/dL (14.0-18.0); LYMPHOCYTES % 15.1 % (20.0-50.0); MEAN CORPUSCULAR VOLUME 85.4 fL (80.0-94.0); MEAN PLATELET VOLUME 8.8 fl (7.4-10.4); MONOCYTES % 9.2 % (2.0-8.0); NEUTROPHILS % 74.9 % (40.0-76.0); PLATELET 459 x1000/uL (130-400); RED BLOOD CELL COUNT 3.26 mill/uL (4.7-6.1); RED CELL DISTRIBUTION WIDTH 15.2 % (11.6-14.6)
[2019-07-25] MEDS ORDERED: SODIUM POLYSTYRENE SULFONATE 15 G/60 ML BOT PO SCH (11:00)
[2019-07-25] MEDS: FUROSEMIDE 40MG TABLET PO SCH (11:03)
[2019-07-25] MEDS: LABETALOL HCL 100MG TABLET PO SCH ×2 (11:04→20:59)
[2019-07-25] MEDS: GUAIFENESIN 600MG ER TABLET PO SCH ×2 (11:04→20:58)
[2019-07-25] MEDS: PREDNISONE 20MG TABLET PO SCH (11:04)
[2019-07-25] MEDS: AZITHROMYCIN 500 MG TABLET PO SCH (11:05)
[2019-07-25 12:00] VITALS: BP 141/69
[2019-07-25] MEDS: INS NPH/REG HM 70-30 100 UNITS/ML 10ML VIAL (HUMULIN 70-30) SUBCUT SCH ×2 (12:43→21:55)
[2019-07-25 16:00] VITALS: BP 156/66
[2019-07-25] MEDS: CEFTRIAXONE 1 G PREMIX 50 ML IV SCH (18:24)
[2019-07-25 20:00] VITALS: BP 147/79
[2019-07-25] MEDS: FAMOTIDINE 20MG TABLET PO SCH (20:58)
[2019-07-25] MEDS: BUDESONIDE 0.5MG/2ML NEB HHN SCH (21:00)
[2019-07-26] VITALS: BP 144/52
[2019-07-26] MEDS: IPRATROPIUM/ALBUTEROL 0.5-3(2.5)MG/3ML NEB HHN SCH ×6 (00:36→21:00)
[2019-07-26] MEDS: ACETYLCYSTEINE 100MG/ML 10% VIAL 4ML INH SCH ×3 (00:37→16:24)
[2019-07-26 04:00] VITALS: BP 145/62
[2019-07-26] MEDS: GABAPENTIN 300MG CAPSULE PO SCH ×3 (06:33→22:11)
[2019-07-26] MEDS: HYDRALAZINE HCL 100MG TABLET PO SCH ×3 (06:34→22:11)
[2019-07-26] MEDS: BLOOD SUGAR DIAGNOSTIC STRIP TEST SCH ×4 (06:47→20:55)
[2019-07-26 08:00] VITALS: BP 135/70
[2019-07-26] MEDS: PREDNISONE 20MG TABLET PO SCH (08:26)
[2019-07-26] MEDS: AZITHROMYCIN 500 MG TABLET PO SCH (08:27)
[2019-07-26] MEDS: FAMOTIDINE 20MG TABLET PO SCH ×2 (08:27→20:51)
[2019-07-26] MEDS: LABETALOL HCL 100MG TABLET PO SCH ×2 (08:27→20:51)
[2019-07-26] MEDS: FUROSEMIDE 40MG TABLET PO SCH (08:27)
[2019-07-26] MEDS: GUAIFENESIN 600MG ER TABLET PO SCH ×2 (08:27→20:52)
[2019-07-26 08:49] LABS: BASOPHILS % 0.3 % (0.0-2.0); EOSINOPHILS % 0.2 % (0.0-5.0); HEMATOCRIT. 26.2 % (42.0-52.0); HEMOGLOBIN. 8.4 g/dL (14.0-18.0); LYMPHOCYTES % 16.9 % (20.0-50.0); MEAN CORPUSCULAR HEMOGLOBIN 26.9 pg (28.0-32.0); MEAN CORPUSCULAR VOLUME 83.7 fL (80.0-94.0); MEAN PLATELET VOLUME 9.2 fl (7.4-10.4); NEUTROPHILS % 71.6 % (40.0-76.0); PLATELET 498 x1000/uL (130-400); RED BLOOD CELL COUNT 3.13 mill/uL (4.7-6.1); RED CELL DISTRIBUTION WIDTH 14.8 % (11.6-14.6)
[2019-07-26] MEDS: INSULIN LISPRO 100 UNITS/ML SUBCUT SCH ×4 (08:56→20:51)
[2019-07-26] MEDS: INS NPH/REG HM 70-30 100 UNITS/ML 10ML VIAL (HUMULIN 70-30) SUBCUT SCH ×2 (08:56→22:12)
[2019-07-26] MEDS: BUDESONIDE 0.5MG/2ML NEB HHN SCH (09:03)
[2019-07-26 12:00] VITALS: BP 151/79
[2019-07-26] MEDS ORDERED: IOHEXOL-300 100 ML BOTTLE ONE (13:47)
[2019-07-26 16:00] VITALS: BP 149/55
[2019-07-26] MEDS: CEFTRIAXONE 1 G PREMIX 50 ML IV SCH (17:48)
[2019-07-26 20:00] VITALS: BP 145/53
[2019-07-27] VITALS: BP 142/52
[2019-07-27] MEDS: ACETYLCYSTEINE 100MG/ML 10% VIAL 4ML INH SCH ×2 (00:50→16:06)
[2019-07-27] MEDS: IPRATROPIUM/ALBUTEROL 0.5-3(2.5)MG/3ML NEB HHN SCH ×5 (00:50→20:00)
[2019-07-27 04:00] VITALS: BP 162/68
[2019-07-27] MEDS: BLOOD SUGAR DIAGNOSTIC STRIP TEST SCH ×4 (05:50→21:12)
[2019-07-27] MEDS: GABAPENTIN 300MG CAPSULE PO SCH ×3 (05:55→21:11)
[2019-07-27] MEDS: HYDRALAZINE HCL 100MG TABLET PO SCH ×3 (05:55→21:11)
[2019-07-27 07:15] LABS: BASOPHILS % 0.4 % (0.0-2.0); EOSINOPHILS % 0.5 % (0.0-5.0); HEMATOCRIT. 24.8 % (42.0-52.0); HEMOGLOBIN. 7.8 g/dL (14.0-18.0); LYMPHOCYTES % 19.3 % (20.0-50.0); MEAN CORPUSCULAR HEMOGLOBIN 26.5 pg (28.0-32.0); MEAN CORPUSCULAR VOLUME 83.8 fL (80.0-94.0); MEAN PLATELET VOLUME 9.3 fl (7.4-10.4); MONOCYTES % 11.6 % (2.0-8.0); NEUTROPHILS % 68.2 % (40.0-76.0); PLATELET 469 x1000/uL (130-400); RED BLOOD CELL COUNT 2.96 mill/uL (4.7-6.1); RED CELL DISTRIBUTION WIDTH 14.9 % (11.6-14.6)
[2019-07-27] MEDS: INSULIN LISPRO 100 UNITS/ML SUBCUT SCH ×4 (07:15→21:10)
[2019-07-27 08:00] VITALS: BP 159/67
[2019-07-27] MEDS: PREDNISONE 20MG TABLET PO SCH (09:19)
[2019-07-27] MEDS: FUROSEMIDE 40MG TABLET PO SCH (09:19)
[2019-07-27] MEDS: LABETALOL HCL 100MG TABLET PO SCH ×2 (09:20→21:12)
[2019-07-27] MEDS: GUAIFENESIN 600MG ER TABLET PO SCH ×2 (09:20→21:12)
[2019-07-27] MEDS: FAMOTIDINE 20MG TABLET PO SCH ×2 (09:20→21:12)
[2019-07-27] MEDS: AZITHROMYCIN 500 MG TABLET PO SCH (09:20)
[2019-07-27] MEDS: INS NPH/REG HM 70-30 100 UNITS/ML 10ML VIAL (HUMULIN 70-30) SUBCUT SCH ×2 (09:23→21:11)
[2019-07-27 12:00] VITALS: BP 148/64
[2019-07-27 16:00] VITALS: BP 125/76
[2019-07-27] MEDS: CEFTRIAXONE 1 G PREMIX 50 ML IV SCH (18:04)
[2019-07-27 20:00] VITALS: BP 148/61
[2019-07-27] MEDS ORDERED: ZOLPIDEM TARTRATE 5MG TABLET PO PRN (22:30)
[2019-07-27] MEDS ORDERED: HYDROCODONE/ACETAMINOPHEN 5/325MG TABLET PO PRN (22:45)
[2019-07-27] MEDS: BUDESONIDE 0.5MG/2ML NEB HHN SCH (23:02)
[2019-07-28] VITALS: BP 150/44
[2019-07-28] MEDS: IPRATROPIUM/ALBUTEROL 0.5-3(2.5)MG/3ML NEB HHN SCH ×3 (00:40→12:01)
[2019-07-28] MEDS: ACETYLCYSTEINE 100MG/ML 10% VIAL 4ML INH SCH ×2 (00:45→12:02)
[2019-07-28 04:00] VITALS: BP 158/60
[2019-07-28] MEDS: HYDRALAZINE HCL 100MG TABLET PO SCH ×2 (05:51→13:11)
[2019-07-28] MEDS: BLOOD SUGAR DIAGNOSTIC STRIP TEST SCH ×3 (05:51→17:04)
[2019-07-28] MEDS: GABAPENTIN 300MG CAPSULE PO SCH ×2 (05:51→13:11)
[2019-07-28] MEDS: INSULIN LISPRO 100 UNITS/ML SUBCUT SCH ×3 (06:45→17:15)
[2019-07-28 08:00] VITALS: BP 147/59
[2019-07-28] MEDS ORDERED: PREDNISONE 20MG TABLET PO SCH (09:00)
[2019-07-28] MEDS: FUROSEMIDE 40MG TABLET PO SCH (09:29)
[2019-07-28] MEDS: GUAIFENESIN 600MG ER TABLET PO SCH (09:31)
[2019-07-28] MEDS: LABETALOL HCL 100MG TABLET PO SCH (09:31)
[2019-07-28] MEDS: AZITHROMYCIN 500 MG TABLET PO SCH (09:31)
[2019-07-28] MEDS: FAMOTIDINE 20MG TABLET PO SCH (09:31)
[2019-07-28] MEDS: INS NPH/REG HM 70-30 100 UNITS/ML 10ML VIAL (HUMULIN 70-30) SUBCUT SCH (09:33)
[2019-07-28 12:00] VITALS: BP 134/56
[2019-07-28] MEDS: BUDESONIDE 0.5MG/2ML NEB HHN SCH (12:02)
[2019-07-28 16:00] VITALS: BP 124/53
[2019-07-28] MEDS ORDERED: LABE100T5 PO (17:05)
[2019-07-28] MEDS ORDERED: FAMO20TA8 PO (17:05)
[2019-07-28] MEDS ORDERED: P20 PO (17:05)
[2019-07-28] MEDS ORDERED: GUAI600T44 PO (17:05)
[2019-07-28] MEDS ORDERED: AMOX250S70 PO (17:48)
[2019-07-28] MEDS: CEFTRIAXONE 1 G PREMIX 50 ML IV SCH (17:58)
[2019-07-28 18:36] VITALS: BP 127/53
== END 2019-07-28 19:36 | disposition home or self-care (01) | DRG 140 ==
LOC: ER 16:50 → ENRESERV 07-23 15:42 → ER 07-23 16:51 → 5WST 07-23 17:55
PROVIDERS: ADMIT Internal Medicine; ATTEND Internal Medicine
DX: J44.1 Chronic obstructive pulmonary disease with (acute) exacerbation (principal); J96.00 Acute respiratory failure, unspecified whether with hypoxia or hypercapnia; J18.9 Pneumonia, unspecified organism; N17.9 Acute kidney failure, unspecified; I13.0 Hypertensive heart and chronic kidney disease with heart failure and stage 1 through stage 4 chronic kidney disease, or unspecified chronic kidney disease; E11.22 Type 2 diabetes mellitus with diabetic chronic kidney disease; E11.65 Type 2 diabetes mellitus with hyperglycemia; I50.9 Heart failure, unspecified; J44.0 Chronic obstructive pulmonary disease with (acute) lower respiratory infection; J45.901 Unspecified asthma with (acute) exacerbation; D64.9 Anemia, unspecified; N18.9 Chronic kidney disease, unspecified; Z96.649 Presence of unspecified artificial hip joint; T38.0X5A Adverse effect of glucocorticoids and synthetic analogues, initial encounter; Z60.2 Problems related to living alone; R91.8 Other nonspecific abnormal finding of lung field; Z99.81 Dependence on supplemental oxygen; Z79.4 Long term (current) use of insulin; Z91.011 Allergy to milk products; Z79.899 Other long term (current) drug therapy
CPT/HCPCS: 36415; 71045; 71250; 71260; 74176; 78582; 80048; 80053; 81003; 82962; 83605; 83880; 84145; 84484; 85025; 85379; 93005; 93970; 94640; 94667; 97162; 97530; 99285; A9558; J0696; J1815; J1956; J2920; J2930; J7030; J7131; J7512; J7608; J7611; J7620; J7626; Q9967